=== PATIENT | female | born 1940 | race Caucasian/White ===

== ENCOUNTER → 2017-08-21 | Day surgery (SDC) | payer MEDICARE ==
[~2017-08-21] VITALS: Ht 149.9 cm; Wt 84.0 kg
[~2017-08-21] MED LIST: AMLO2.5T PO; BACITRACIN TOP OINT 15 GM TUBE ONE; BIOFTAB PO; CHLORHEXIDINE GLUCONATE 2 % 1 PACK (2 CLOTHS) TOPICAL PRN; CIPR500T2 PO; GEMF600T PO; INSULIN HUMAN REGULAR 1,000 UNITS/10 ML VIAL SQ PRN; LACTATED RINGER'S 1000 ML IV PRN; LEVO100T63 PO; LIDOCAINE 1%/EPINEPHrine 1:100,000 SOLN 20 ML VIAL ONE; LISI40TA PO; METOPROLOL TARTRATE 25 MG TAB PO PRN; MULT-65 PO; NON-500T10 PO; OXYB5TAB PO; PRIL20TA2 PO; PROP40TA3 PO; SODIUM BICARBONATE 8.4% INJ 0 ML ONE; SODIUM CHLORID 0.9% 500 ML IV PRN; VITA100064 PO; VITA200C3 PO; VITA500T83 PO; ceFAZolin 2 GM PREMIX 50 ML IV SCH
--- NOTE | 2017-08-21 10:02 | MP ---
cc: SHAILA BELL M.D. DATE OF SURGERY 08/21/2017 PREOPERATIVE DIAGNOSIS Basal cell carcinoma nasal tip and left side of the nose. POSTOPERATIVE DIAGNOSIS Basal cell carcinoma nasal tip and left side of the nose. OPERATION Excision of basal cell carcinoma left side nose and tip, 2.5 x 2 cm, frozen section, full-thickness skin graft from the left neck. SURGEON Dr. Bell. ANESTHESIA General. INDICATIONS A 77-year-old white female with biopsy-proven basal cell carcinoma left side of the tip of the nose. There are two separate areas nearby and only one is biopsied but the other one also looks suspicious towards the tip. The patient underwent explanation of the excision and frozen section process and then once clear margins are obtained a full-thickness skin graft is the simplest way to reconstruct. Other possible options were discussed briefly. The patient understands that the skin graft may or may not completely take and there may be need for further surgeries in the future. she also agrees to the general anesthesia and possible risks, complications, pros and cons were discussed briefly as well. PROCEDURE The patient was brought to the operating room, was given supine position. Anesthesia was started. Prep and drape was done. IV antibiotic had been given. Time-out was called and completed preoperative markings were reinforced and approximately 4 mm margin was taken down, the shortest side towards the alar border. The border itself could be still preserved. The area was injected with lidocaine 1% with epi and specimen was excised, suture marked superior and sent for frozen section. Hemostasis was completed. An oversized graft was harvested from the left neck along the crease line and was defatted and applied to the defect. Frozen section report issued indicated presence of the BCC with clear margins. The graft insetting was completed. Sterile dressing was applied. The patient remained stable. Intraoperative blood loss less than 5 mL. No complications. MD ABHI Baker/MATTHEW /9:15 AM /10:00 AM
[2017-08-21 11:00] VITALS: BP 136/78; PULSE 56; RESP 15; TEMP 98.4; O2SAT 94
== END | disposition home or self-care (01) ==
LOC: PHSDC 06:16
PROVIDERS: ATTEND Plastic Surgery
DX: C44.311 Basal cell carcinoma of skin of nose (principal); I10 Essential (primary) hypertension; E03.9 Hypothyroidism, unspecified; K21.9 Gastro-esophageal reflux disease without esophagitis
CPT/HCPCS: 00300; 11643; 15260; 88305; 88331; J0690; J3010; J7120